=== PATIENT | male | born 1955 | race Caucasian/White ===

== ENCOUNTER 2022-11-22 16:03 | Emergency (ER) | payer MEDICARE, OTHER ==
[~2022-11-22] VITALS: Ht 172.7 cm; Wt 98.2 kg
[2022-11-22 16:14] VITALS: TEMP 98.8
[2022-11-22] MEDS ORDERED: ondansetron/PF 4mg/2ml inj IV ONE (16:20)
[2022-11-22] MEDS ORDERED: normal saline 1000ML IV soln IVB ONE (16:20)
[2022-11-22 17:34] LABS: BASOPHILS % (AUTO) 0.4 % (0-1); EOSINOPHILS # (AUTO) 0.1 X10'3 (0-0.9); EOSINOPHILS % (AUTO) 1.2 % (0-6); HEMATOCRIT 36.6 % (42.0-52.0); HEMOGLOBIN 12.2 g/dl (14.0-17.9); LYMPHOCYTES # (AUTO) 1.6 X10'3 (1.1-4.8); LYMPHOCYTES % (AUTO) 18.4 % (21-51); MEAN CORPUSCULAR HEMOGLOBIN 30.5 PG (27.0-31.0); MEAN CORPUSCULAR HGB CONC 33.3 g/dL (33.0-36.5); MEAN CORPUSCULAR VOLUME 91.5 FL (78-98); MEAN PLATELET VOLUME 7.9 FL (7.4-10.4); MONOCYTES % (AUTO) 11.2 % (2-12); NEUTROPHILS # (AUTO) 5.9 X10'3 (1.8-7.7); NEUTROPHILS % (AUTO) 68.8 % (42-75); PLATELET COUNT 298 X10'3 (140-440); RED CELL DISTRIBUTION WIDTH 13.4 % (11.5-14.5); WHITE BLOOD COUNT 8.6 X10'3 (4.5-11.0)
[2022-11-22 17:36] LABS: ALANINE AMINOTRANSFERASE 30 U/L (12-78); ALBUMIN 3.7 G/DL (3.4-5.0); ALKALINE PHOSPHATASE 80 IU/L (46-116); ANION GAP 3 (8-16); ASPARTATE AMINO TRANSFERASE 26 U/L (10-37); BILIRUBIN,TOTAL 1.2 MG/DL (0.1-1.0); BLOOD UREA NITROGEN 21 MG/DL (7-18); BUN/CREATININE RATIO 20.6 (10.0-20.0); CALCIUM 9.5 MG/DL (8.5-10.1); CHLORIDE 98 MMOL/L (99-107); CREATININE 1.02 MG/DL (0.60-1.10); GLUCOSE 129 MG/DL (70-104); LIPASE 85 U/L (73-393); POTASSIUM 3.9 MMOL/L (3.5-5.1); SODIUM 134 MMOL/L (135-145); TOTAL CARBON DIOXIDE 32.8 MMOL/L (24-32); TOTAL PROTEIN 7.5 G/DL (6.4-8.2); eCRCL 70 ML/MIN; eGFR 73 ML/MIN
[2022-11-22] MEDS ORDERED: oxyCODONE IR 5mg (immed. release) tablet PO ONE (19:35)
[2022-11-22] MEDS ORDERED: ondansetron 4mg rapidly disintigrating tab PO ONE ×2 (19:35→22:25)
[2022-11-22 20:30] VITALS: BP 121/78; PULSE 79; RESP 14; O2SAT 97
[2022-11-22] MEDS: morphine 4 MG/ML inj SYRINge IV PRN ×2 (20:45→21:36)
[2022-11-22] MEDS ORDERED: acetaminophen 325mg tablet PO ONE (21:15)
--- NOTE | 2022-11-22 21:25 | NUR ---
Per Dr Morejon, patient to recieve Oxy, Tylenol, and Morphine at once.
[2022-11-22] MEDS ORDERED: ONDA4TAB12 PO (22:19)
[2022-11-22] MEDS ORDERED: HYDR4TAB45 PO (22:19)
--- NOTE | 2022-11-22 22:27 | NUR ---
LATHA Morgan sent home with patient in case of breathrough nausea prior to AM when meds can be filled at pharmacy.
== END 2022-11-22 22:39 | disposition home or self-care (01) ==
LOC: ER 16:04
DX: R19.02 Left upper quadrant abdominal swelling, mass and lump (principal); R10.12 Left upper quadrant pain; I10 Essential (primary) hypertension; J44.9 Chronic obstructive pulmonary disease, unspecified; F17.210 Nicotine dependence, cigarettes, uncomplicated; Z79.899 Other long term (current) drug therapy
CPT/HCPCS: 36415; 74176; 80053; 83690; 85025; 96374; 96375; 96376; 99285; J2270; J2405; J7030